=== PATIENT | female | born 1955 | race Caucasian/White ===

== ENCOUNTER 2016-11-10 11:26 | Emergency (ER) | payer MEDICAID, MEDICARE ==
[~2016-11-10] VITALS: Ht 158.8 cm; Wt 88.9 kg
[2016-11-10 11:50] VITALS: BP 132/98; PULSE 90; RESP 17; TEMP 98.7; O2SAT 98
[2016-11-10 11:56] VITALS: BP 135/69; PULSE 82; RESP 18; O2SAT 99
[2016-11-10] MEDS ORDERED: NEXI40CA PO (12:09)
[2016-11-10] MEDS ORDERED: PROZ40CA PO (12:09)
[2016-11-10] MEDS ORDERED: CYMB60CA PO (12:09)
[2016-11-10] MEDS ORDERED: LORA-475 PO (12:09)
[2016-11-10] MEDS ORDERED: MOTR200T4 PO (12:09)
[2016-11-10] MEDS ORDERED: KETOROLAC TROMETHAMINE 60 MG/2 ML (IM) VIAL IM ONE (12:30)
--- NOTE | 2016-11-10 12:34 | PD ---
HPI Chief Complaint: Edema Time Seen by Provider: 12:19 Travel History International Travel<30 days: No Contact w/Intl Traveler<30days: No Traveled to known affect area: No History of Present Illness HPI 61yo F with no PMH presents to the ED with c/o left leg swelling, pain for 4-5 days. States she drove from [place] down here 1 week ago and the trip took 2 days with little rest. Denies any fever, chest pain, sob, n/v, abdominal pain, weakness or numbness. PFSH Past Medical History Anxiety: Yes Depression: Yes Heart Rhythm Problems: Yes (tacycardia) Cardiovascular Problems: Yes Diminished Hearing: No GERD: Yes Psychiatric: Yes Immunizations Current: Yes Pneumonia: Yes Tetanus Vaccination: < 5 Years Influenza Vaccination: No ?: Not Menopausal: No Past Surgical History Section: Yes Hysterectomy: Yes Other Surgery: Yes (sinus) Social History Alcohol Use: No Tobacco Use: No Substance Use: No Allergies-Medications (Allergen,Severity, Reaction): Coded Allergies: No Known Allergies (Unverified , 11/10/16) Reported Meds & Prescriptions Reported Meds & Active Scripts Active Reported Motrin Ib (Ibuprofen) 200 Mg Tab 1,000 Mg PO ONCE PRN Ativan (Lorazepam) 2 Mg Tab 2 Mg PO Q8H PRN Nexium (Esomeprazole DR) 40 Mg Capdr 80 Mg PO HS Prozac (Fluoxetine HCl) 40 Mg Cap 60 Mg PO DAILY Cymbalta DR (Duloxetine HCl) 60 Mg Capdr 90 Mg PO DAILY Review of Systems Except as stated in HPI: all other systems reviewed are Neg Physical Exam Narrative GENERAL: 61yo F not in distress. SKIN: Warm and dry. HEAD: Atraumatic. Normocephalic. EYES: Pupils equal and round. No scleral icterus. No injection or drainage. ENT: No nasal bleeding or discharge. Mucous membranes pink and moist. NECK: Trachea midline. No JVD. CARDIOVASCULAR: Regular rate and rhythm. No murmur appreciated. RESPIRATORY: No accessory muscle use. Clear to auscultation. Breath sounds equal bilaterally. GASTROINTESTINAL: Abdomen soft, non-tender, nondistended. MUSCULOSKELETAL: LLE: +TTP calf. It is more edematous than right. DP 2+. Sensation intact. Pt has sunburn in both legs, chest area and do not feel that her leg is infected. NEUROLOGICAL: Awake and alert. No obvious cranial nerve deficits. Motor grossly within normal limits. Normal speech. PSYCHIATRIC: Appropriate mood and affect; insight and judgment normal. Data Data Last Documented VS Vital Signs Date Time Temp Pulse Resp B/P Pulse Ox O2 Delivery O2 Flow Rate FiO2 11/10/16 11:56 86 98 Room Air 11/10/16 11:56 18 135/69 11/10/16 11:50 98.7 Orders Us Leg Venous Doppler (11/10/16 ) Ketorolac Inj (Toradol Inj) (11/10/16 12:30) MDM Medical Decision Making Medical Screen Exam Complete: Yes Emergency Medical Condition: Yes Differential Diagnosis DVT vs. musculoskeletal pain Narrative Course 61yo F with left leg edema and calf pain. Pt recently had long drive from [place]. US left lower ext showed no DVT. Pt given toradol and reevaluated at bedside. Pain has resolved. Pt is well appearing and wants to go home. Return precautions given. Pt is to follow up with PMD for further work up. Diagnosis Primary Impression: Left leg pain Patient Instructions: General Instructions Departure Forms: Tests/Procedures Additional Instructions: Please follow up with your PMD in 3-7 days. Return to the ED if symptoms worsen. Med/Other Pt SpecificInfo: Prescription(s) given Scripts Acetaminophen (Acetaminophen Extra Strength)500 Mg Ons049 Mg PO Q6H PRN (PAIN SCALE 1 TO 4) #20 TAB Ref 0 Prov:Bouchra Longo 11/10/16 Disposition: 01 DISCHARGE HOME Condition: Stable LongoLou bryantkaren VASQUEZ Nov 10, 2016 12:34
--- NOTE | 2016-11-10 14:12 | RADHPO ---
EXAM DATE/TIME: 11/10/2016 13:27 [facility] COMPARISON: No previous studies available for comparison. INDICATIONS : Left leg pain after long car ride. MEDICAL HISTORY : Gastroesophageal reflux disease. Tacycardia. Pneumonia. Psychiatric problems. Depression. Anxiet y. SURGICAL HISTORY : Hysterectomy. Bunion heel spur. Rods in back. ENCOUNTER: Initial ACUITY: 3 days PAIN SCORE: 8/10 LOCATION: Left leg. TECHNIQUE: Venous ultrasound of the leg was performed from the inguinal ligament to the proximal calf. Real-jama e, color Doppler and spectral tracing, compression and augmentation techniques were used. FINDINGS: There is normal compressibility of the deep venous system from the inguinal region to the proximal ca lf. No echogenic clot is seen in the lumen of the common femoral, femoral, popliteal, and posterior tibial veins. There is a normal response of the venous system to proximal and distal augmentation an d respiration. CONCLUSION: Normal examination. Nagi Quintana Jr., MD on November 10, 2016 at 13:56 Board Certified Radiologist. This report was verified electronically.
[2016-11-10 14:26] VITALS: BP 149/95
[2016-11-10] MEDS ORDERED: ACET500T36 PO (14:27)
== END 2016-11-10 14:43 | disposition home or self-care (01) ==
LOC: PHED 11:26
DX: M79.605 Pain in left leg (principal)
CPT/HCPCS: 93971; 96372; 99283; J1885